=== PATIENT | female | born 1940 | race Caucasian/White ===

== ENCOUNTER 2021-08-30 21:43 | Inpatient (IN) | payer MEDICARE, OTHER ==
[2021-08-30] MEDS ORDERED: DIAZEPAM 5 MG/ML 2 ML INJ IVP STA (22:10)
--- NOTE | 2021-08-30 22:12 | ED ---
Abdominal Pain HPI - General Chief Complaint: Abdominal Pain Stated Complaint: Abdominal Pain Time Seen by Provider: 08/30/21 21:45 Source: patient, EMS, RN notes reviewed, old records reviewed Mode of arrival: EMS Limitations: no limitations - History of Present Illness Initial Comments: This is an 81-year-old female to the emergency room today. Patient Dese for evaluation of severe abdominal pain. Patient having significant intractable abdominal pain here in the ER unable to provide history of present illness secondary severity of pain. Positive nausea no significant current active vomiting. Patient is a poor strain secondary to current clinical state amount of pain MD Complaint: abdominal pain, flank pain (eft) Location: LLQ, suprapubic Radiation: L flank Migration to: L flank Severity: moderate Severity scale (1-10): 7 Quality: stabbing Consistency: constant Improves With: nothing Worsens With: nothing Associated Symptoms: denies other symptoms, nausea Treatments Prior to Arrival: prescription analgesics, other (ketamine) - Related Data Home Medications Medication Instructions Recorded Confirmed Acetaminophen Tab [Tylenol] 650 mg PO Q6H PRN MDD 3 GM 08/30/21 08/30/21 Cephalexin [Keflex] 500 mg PO BID@0800,199908/30/21 08/30/21 Docusate [Colace] 100 mg PO BID@0800,199908/30/21 08/30/21 Famotidine [Pepcid] 20 mg PO HS@199908/30/21 08/30/21 Lidocaine [Lidocaine 5% Rectal 1 applic RECTAL Q8H PRN 08/30/21 08/30/21 Cream] Nystatin 100,000Unit/gm Cream 1 applic TOPICAL DAILY@79908/30/21 08/30/21 [Mycostatin Cream] amLODIPine [Norvasc] 10 mg PO DAILY@79908/30/21 08/30/21 lisinopriL [Zestril] 5 mg PO DAILY@79908/30/21 08/30/21 polyethylene glycoL 3350 [Miralax] 17 gm PO DAILY@79908/30/21 08/30/21 traMADol HCL 50 mg PO Q6H PRN 08/30/21 08/30/21 Allergies Allergy/AdvReac Type Severity Reaction Status Date / Time No Known Allergies Allergy Verified 08/30/21 22:21 Review of Systems ROS Statement: Those systems with pertinent positive or pertinent negative responses have been documented in the HPI. ROS Other: All systems not noted in ROS Statement are negative. Past Medical History Past Medical History: Dementia, Diabetes Mellitus, Hypertension Additional Past Medical History / Comment(s): Alzheimers, Dysphagia, general muscle weakness, constipation, hemorrhoids, UTI History of Any Multi-Drug Resistant Organisms: None Reported Past Surgical History: Unable to Obtain Past Psychological History: No Psychological Hx Reported Smoking Status: Current every day smoker Past Alcohol Use History: None Reported Past Drug Use History: None Reported General Exam Limitations: altered mental status, physical limitation General appearance: alert, in no apparent distress, anxious, in distress Head exam: Present: atraumatic, normocephalic, normal inspection Eye exam: Present: normal appearance, PERRL, EOMI. Absent: scleral icterus, conjunctival injection, periorbital swelling ENT exam: Present: normal exam, mucous membranes moist Neck exam: Present: normal inspection. Absent: tenderness, meningismus, lymphadenopathy Respiratory exam: Present: normal lung sounds bilaterally. Absent: respiratory distress, wheezes, rales, rhonchi, stridor Cardiovascular Exam: Present: regular rate, normal rhythm, normal heart sounds. Absent: systolic murmur, diastolic murmur, rubs, gallop, clicks GI/Abdominal exam: Present: soft, normal bowel sounds. Absent: distended, tenderness, guarding, rebound, rigid Extremities exam: Present: normal inspection, full ROM, normal capillary refill. Absent: tenderness, pedal edema, joint swelling, calf tenderness Back exam: Present: normal inspection Neurological exam: Present: alert, oriented X3, CN II-XII intact Psychiatric exam: Present: normal affect, normal mood Skin exam: Present: warm, dry, intact, normal color. Absent: rash Course Vital Signs 08/30/21 08/31/21 21:49 00:26 Temperature 98.3 F Pulse Rate 71 66 Respiratory 16 20 Rate Blood Pressure 140/72 166/76 O2 Sat by Pulse 96 94 L Oximetry - Reevaluation(s) Reevaluation #1: 08/31/21 00:34 Medical record is reviewed Reevaluation #2: 08/31/21 00:34 Patient has intractable pain here in the ER 08/31/21 00:34 Patient's pain is difficult to control despite multiple pain medication given Reevaluation #3: 08/31/21 00:34 Patient family informed results questions answered - Consultations Consultation #1: spoke with [facility] will admit the patient Consultation #2: Spoke with Dr. Valdez who is aware of the patient Medical Decision Making - Medical Decision Making 81 female to the ER today for evaluation patient patient is significant left- sided flank pain with positive left kidney stone. Patient's pain is intractable unable control pain here in the ER she'll be admitted for pain control and urology to evaluate - Lab Data Result diagrams: 08/30/21 22:17 08/30/21 22:17 Lab Results 08/30/21 08/30/21 08/30/21 Range/Units 22:17 22:17 22:17 WBC 18.8 H (3.8-10.6) k/uL RBC 4.49 (3.80-5.40) m/uL Hgb 13.0 (11.4-16.0) gm/dL Hct 40.7 (34.0-46.0) % MCV 90.7 (80.0-100.0) fL MCH 28.9 (25.0-35.0) pg MCHC 31.9 (31.0-37.0) g/dL RDW 14.4 (11.5-15.5) % Plt Count 220 (150-450) k/uL MPV 8.4 Neutrophils % 87 % Lymphocytes % 6 % Monocytes % 5 % Eosinophils % 0 % Basophils % 0 % Neutrophils # 16.2 H (1.3-7.7) k/uL Lymphocytes # 1.1 (1.0-4.8) k/uL Monocytes # 0.9 (0-1.0) k/uL Eosinophils # 0.0 (0-0.7) k/uL Basophils # 0.0 (0-0.2) k/uL Sodium 135 L (137-145) mmol/L Potassium 4.3 (3.5-5.1) mmol/L Chloride 108 H (98-107) mmol/L Carbon Dioxide 19 L (22-30) mmol/L Anion Gap 8 mmol/L BUN 43 H (7-17) mg/dL Creatinine 0.99 (0.52-1.04) mg/dL Est GFR (CKD-EPI)AfAm 62 (>60 ml/min/1.73 sqM) Est GFR (CKD-EPI)NonAf 54 (>60 ml/min/1.73 sqM) Glucose 143 H (74-99) mg/dL Plasma Lactic Acid Justin (0.7-2.0) mmol/L Calcium 8.1 L (8.4-10.2) mg/dL Total Bilirubin 1.2 (0.2-1.3) mg/dL AST 30 (14-36) U/L ALT 18 (4-34) U/L Alkaline Phosphatase 72 (38-126) U/L Troponin I (0.000-0.034) ng/mL Total Protein 5.7 L (6.3-8.2) g/dL Albumin 3.0 L (3.5-5.0) g/dL Amylase 33 (30-110) U/L Lipase 15 L (23-300) U/L Urine Color Yellow Urine Appearance Cloudy H (Clear) Urine pH 7.0 (5.0-8.0) Ur Specific Holcomb 1.015 (1.001-1.035) Urine Protein 1+ H (Negative) Urine Glucose (UA) Negative (Negative) Urine Ketones Trace H (Negative) Urine Blood Large H (Negative) Urine Nitrite Negative (Negative) Urine Bilirubin Negative (Negative) Urine Urobilinogen <2.0 (<2.0) mg/dL Ur Leukocyte Esterase Moderate H (Negative) Urine RBC 7 H (0-5) /hpf Urine WBC 11 H (0-5) /hpf Urine WBC Clumps Rare H (None) /hpf Ur Squamous Epith Cells <1 (0-4) /hpf Amorphous Sediment Moderate H (None) /hpf Urine Bacteria Many H (None) /hpf Urine Mucus Rare H (None) /hpf 08/30/21 08/30/21 Range/Units 22:17 22:17 WBC (3.8-10.6) k/uL RBC (3.80-5.40) m/uL Hgb (11.4-16.0) gm/dL Hct (34.0-46.0) % MCV (80.0-100.0) fL MCH (25.0-35.0) pg MCHC (31.0-37.0) g/dL RDW (11.5-15.5) % Plt Count (150-450) k/uL MPV Neutrophils % % Lymphocytes % % Monocytes % % Eosinophils % % Basophils % % Neutrophils # (1.3-7.7) k/uL Lymphocytes # (1.0-4.8) k/uL Monocytes # (0-1.0) k/uL Eosinophils # (0-0.7) k/uL Basophils # (0-0.2) k/uL Sodium (137-145) mmol/L Potassium (3.5-5.1) mmol/L Chloride (98-107) mmol/L Carbon Dioxide (22-30) mmol/L Anion Gap mmol/L BUN (7-17) mg/dL Creatinine (0.52-1.04) mg/dL Est GFR (CKD-EPI)AfAm (>60 ml/min/1.73 sqM) Est GFR (CKD-EPI)NonAf (>60 ml/min/1.73 sqM) Glucose (74-99) mg/dL Plasma Lactic Acid Justin 1.1 (0.7-2.0) mmol/L Calcium (8.4-10.2) mg/dL Total Bilirubin (0.2-1.3) mg/dL AST (14-36) U/L ALT (4-34) U/L Alkaline Phosphatase (38-126) U/L Troponin I 0.082 H* (0.000-0.034) ng/mL Total Protein (6.3-8.2) g/dL Albumin (3.5-5.0) g/dL Amylase (30-110) U/L Lipase (23-300) U/L Urine Color Urine Appearance (Clear) Urine pH (5.0-8.0) Ur Specific Holcomb (1.001-1.035) Urine Protein (Negative) Urine Glucose (UA) (Negative) Urine Ketones (Negative) Urine Blood (Negative) Urine Nitrite (Negative) Urine Bilirubin (Negative) Urine Urobilinogen (<2.0) mg/dL Ur Leukocyte Esterase (Negative) Urine RBC (0-5) /hpf Urine WBC (0-5) /hpf Urine WBC Clumps (None) /hpf Ur Squamous Epith Cells (0-4) /hpf Amorphous Sediment (None) /hpf Urine Bacteria (None) /hpf Urine Mucus (None) /hpf - Radiology Data Radiology results: report reviewed (CT head and pelvis is positive for left obstructing kidney stone), image reviewed Disposition Clinical Impression: Left ureteral calculus, Intractable pain Disposition: ADMITTED IP TO THIS HOSP Condition: Good Is patient prescribed a controlled substance at d/c from ED?: No Referrals: Tejas Ocampo MD [Primary Care Provider] - 1-2 days
[2021-08-30 22:40] LABS: Calcium 8.1 mg/dL (8.4-10.2); Potassium 4.3 mmol/L (3.5-5.1); Total Bilirubin 1.2 mg/dL (0.2-1.3); Total Protein 5.7 g/dL (6.3-8.2)
[2021-08-30 22:57] LABS: Basophils % (A) 0 %; Eosinophils % (A) 0 %; HCT 40.7 % (34.0-46.0); Lymphocytes # (A) 1.1 k/uL (1.0-4.8); Lymphocytes % (A) 6 %; MCH 28.9 pg (25.0-35.0); MCHC 31.9 g/dL (31.0-37.0); MCV 90.7 fL (80.0-100.0); Mean Platelet Volume 8.4; Monocytes # (A) 0.9 k/uL (0-1.0); Monocytes % (A) 5 %; Neutrophils # (A) 16.2 k/uL (1.3-7.7); Neutrophils % (A) 87 %; Platelet Count 220 k/uL (150-450); RBC 4.49 m/uL (3.80-5.40); RDW 14.4 % (11.5-15.5); WBC 18.8 k/uL (3.8-10.6)
[2021-08-30 23:06] LABS: Amorphous Sediment,Urine Moderate /hpf; Appearance,Urine Cloudy (Clear); Bacteria,Urine Many /hpf; Bilirubin,Urine Negative (Negative); Blood,Urine Large (Negative); Color,Urine Yellow; Glucose,Urine (UA) Negative (Negative); Ketones,Urine Trace (Negative); Leukocyte Esterase,Urine Moderate (Negative); Mucus,Urine Rare /hpf; Nitrite,Urine Negative (Negative); Protein,Urine 1+ (Negative); RBC,Urine 7 /hpf (0-5); Specific Gravity,Urine 1.015 (1.001-1.035); Squamous Epithelial Cell,Urine <1 /hpf (0-4); Urobilinogen,Urine <2.0 mg/dL (<2.0); WBC,Urine 11 /hpf (0-5)
--- NOTE | 2021-08-30 23:58 | CT ---
EXAMINATION TYPE: CT abdomen pelvis w con DATE OF EXAM: 08/30/2021 COMPARISON: None HISTORY: abd pain. ams CT DLP: 1356.8 mGycm Automated exposure control for dose reduction was used. CONTRAST: Performed with IV Contrast, patient injected with 80 mL of Isovue 300. Images obtained from the diaphragm to the floor the pelvis with IV contrast. There is some interstiti al infiltrate and atelectasis at both lung bases. Heart is enlarged. There is no pericardial effusion . Liver is intact. There are numerous calcified splenic granulomata. There is no evidence of pancreatic mass. There is some pancreatic atrophy. Stomach is intact. Gallbladder appears absent. The intrahepatic bile ducts are not dilated. There is no adrenal mass. Kidneys have normal size. There is left-sided hydronephrosis with 1 cm calculus lower pole left kidne y. There is also 7 mm calculus at the left ureteropelvic junction. Delayed images show a delayed left sided pyelogram. There is cortical 3 cm area of hypodensity lower pole left kidney that could be aty pical cyst or cortical infarct. Right kidney shows satisfactory contrast opacification and excretion. There is no retroperitoneal adenopathy. Ureters are not dilated. Abdominal aorta is atheromatous. Th ere is no dissection. There is bilateral hip prosthesis. Detail in the pelvis limited by metal artifa ct. There is no evidence of a pelvic mass. Bladder appears to distends smoothly. There is no free flu id in the pelvis. There is no evidence of pelvic mass. There is left lower quadrant anterior abdominal wall ventral hernia that contains omental fat and chalo sures 8 x 4 cm. There is 3.2 cm aneurysm of the lower abdominal aorta. There is some mild fat stranding and fluid jayne und the left kidney. The lumbar vertebrae show normal alignment. There is multilevel spondylotic changes with disc space n arrowing and spur formation. There is no compression fracture. Bony pelvis is intact. Appendix is posterior and appears normal. IMPRESSION: Obstructing calculus left ureteral pelvic junction with hydronephrosis. A large calculus lower pole l eft kidney. Moderate atherosclerotic vascular disease. Cortical hypodensity lower pole left kidney could be an ol d infarct. Mild abdominal aortic aneurysm. Patchy infiltrates and atelectasis at both lung bases. Mild cardiomegaly.
[2021-08-31] MEDS ORDERED: KETOROLAC 15 MG/ML 1 ML VIAL IVP STA (00:30)
[2021-08-31] MEDS ORDERED: ONDANSETRON 4 MG/2 ML VIAL IVP STA (00:30)
[2021-08-31] MEDS ORDERED: HYDROmorphone 1 MG/ML 1 ML SYRINGE IVP STA (00:30)
[2021-08-31] MEDS ORDERED: NALOXONE 0.4 MG/ML 1 ML VIAL IV PRN (00:31)
[2021-08-31] MEDS: SODIUM CHLORIDE 0.9% 1,000 ML IV SCH ×3 (00:48→18:07)
[2021-08-31] MEDS: HYDROmorphone 1 MG/ML 1 ML SYRINGE IVP PRN ×4 (02:57→19:28)
--- NOTE | 2021-08-31 03:23 | P.HPIM ---
History of Present Illness H&P Date: 08/31/21 Chief Complaint: abd pain 81 year old female with dementia , DM , hypertension patient unable to provide any meaningful history , she makes eye contact, and moaning only . family not available at this time from ED records, patient presents with severe abd pain , refractory to pain meds, with report of nausea and vomiting, no report of hematuria or diarrhea , no report of fever. imaging in the ED showed left kidney stones (obstructing left uretro pelvic junction calculus with hydronephrosis , and large lower pole Left kidney stone , mild abd aneurysm ) blood work showd normal lactic acid , Leukocytosis of 18 Review of Systems ROS unobtainable: due to mental status Past Medical History Past Medical History: Dementia, Diabetes Mellitus, Hypertension Additional Past Medical History / Comment(s): Alzheimers, Dysphagia, general muscle weakness, constipation, hemorrhoids, UTI History of Any Multi-Drug Resistant Organisms: None Reported Past Surgical History: Unable to Obtain Past Psychological History: No Psychological Hx Reported Smoking Status: Current every day smoker Past Alcohol Use History: None Reported Past Drug Use History: None Reported Medications and Allergies Home Medications Medication Instructions Recorded Confirmed Type Acetaminophen Tab [Tylenol] 650 mg PO Q6H PRN MDD 3 GM 08/30/21 08/30/21 History Cephalexin [Keflex] 500 mg PO BID@0800,199908/30/21 08/30/21 History Docusate [Colace] 100 mg PO BID@0800,199908/30/21 08/30/21 History Famotidine [Pepcid] 20 mg PO HS@199908/30/21 08/30/21 History Lidocaine [Lidocaine 5% Rectal 1 applic RECTAL Q8H PRN 08/30/21 08/30/21 History Cream] Nystatin 100,000Unit/gm Cream 1 applic TOPICAL DAILY@79908/30/21 08/30/21 History [Mycostatin Cream] amLODIPine [Norvasc] 10 mg PO DAILY@79908/30/21 08/30/21 History lisinopriL [Zestril] 5 mg PO DAILY@0800 08/30/21 08/30/21 History polyethylene glycoL 3350 [Miralax] 17 gm PO DAILY@79908/30/21 08/30/21 History traMADol HCL 50 mg PO Q6H PRN 08/30/21 08/30/21 History Allergies Allergy/AdvReac Type Severity Reaction Status Date / Time No Known Allergies Allergy Verified 08/30/21 22:21 Physical Exam Vitals: Vital Signs Temp Pulse Resp BP Pulse Ox 08/31/21 00:26 66 20 166/76 94 L 08/30/21 21:49 98.3 F 71 16 140/72 96 Intake and Output 08/30/21 08/30/21 08/31/21 14:59 22:59 06:59 Other: Weight 68.039 kg limited exam , patient does not cooperate with commands. Constitutional: moaning in pain , makes eye contact, does not follow c ommands moving spontaneously Eyes: Anicteric sclerae, moist conjunctiva, Pupils equal round reactive to light ENMT: NC/AT Oropharynx clear, no erythema, or exudates Neck: Supple, no masses, or JVD No carotid bruits No thyromegaly Lungs: Clear to auscultation Clear to percussion Normal respiratory effort, no accessory muscle use Cardiovascular: Heart regular in rate and rhythm, systolic murmurs, no gallops, or rubs No peripheral edema Abdominal: Soft deep palpation of the abd does not seem to increase patient pain , no guarding, rebound or rigidity Abdomen moving with respiration Normoactive bowel sounds No hepatomegaly, No splenomegaly No palpable mass No abdominal wall hernia noted Skin: Normal temperature, tone, texture, turgor Extremities: No digital cyanosis No clubbing Pedal pulses intact and symmetrical Radial pulses intact and symmetrical No calf tenderness Psychiatric: awake , moaning does not answer questions, does not follow commands, Neuro could not assess neuro exam , patient moving her extremities spontaneously Lymphatics: no palpable cervical or supraclavicular , lymph nodes Results CBC & Chem 7: 08/30/21 22:17 08/30/21 22:17 Labs: Abnormal Lab Results - Last 24 Hours (Table) 08/30/21 08/30/21 08/30/21 Range/Units 22:17 22:17 22:17 WBC 18.8 H (3.8-10.6) k/uL Neutrophils # 16.2 H (1.3-7.7) k/uL Sodium 135 L (137-145) mmol/L Chloride 108 H (98-107) mmol/L Carbon Dioxide 19 L (22-30) mmol/L BUN 43 H (7-17) mg/dL Glucose 143 H (74-99) mg/dL Calcium 8.1 L (8.4-10.2) mg/dL Troponin I (0.000-0.034) ng/mL Total Protein 5.7 L (6.3-8.2) g/dL Albumin 3.0 L (3.5-5.0) g/dL Lipase 15 L (23-300) U/L Urine Appearance Cloudy H (Clear) Urine Protein 1+ H (Negative) Urine Ketones Trace H (Negative) Urine Blood Large H (Negative) Ur Leukocyte Esterase Moderate H (Negative) Urine RBC 7 H (0-5) /hpf Urine WBC 11 H (0-5) /hpf Urine WBC Clumps Rare H (None) /hpf Amorphous Sediment Moderate H (None) /hpf Urine Bacteria Many H (None) /hpf Urine Mucus Rare H (None) /hpf 08/30/21 Range/Units 22:17 WBC (3.8-10.6) k/uL Neutrophils # (1.3-7.7) k/uL Sodium (137-145) mmol/L Chloride (98-107) mmol/L Carbon Dioxide (22-30) mmol/L BUN (7-17) mg/dL Glucose (74-99) mg/dL Calcium (8.4-10.2) mg/dL Troponin I 0.082 H* (0.000-0.034) ng/mL Total Protein (6.3-8.2) g/dL Albumin (3.5-5.0) g/dL Lipase (23-300) U/L Urine Appearance (Clear) Urine Protein (Negative) Urine Ketones (Negative) Urine Blood (Negative) Ur Leukocyte Esterase (Negative) Urine RBC (0-5) /hpf Urine WBC (0-5) /hpf Urine WBC Clumps (None) /hpf Amorphous Sediment (None) /hpf Urine Bacteria (None) /hpf Urine Mucus (None) /hpf Microbiology - Last 24 Hours (Table) 08/30/21 22:17 Urine Culture - Preliminary Urine,Catheterized Assessment and Plan Assessment: UTI kidney stones , obstructive uropathy with left hydronephrosis plan urology consult IVF hydration pain control follow up cultures rocephine 1 gm Daily fall precautions supportive care pain control with opioids elevated trops trend troponins monitor vital signs no report of chest pain mild abd aortic aneurysm , consider OP follow up chronic conditions hypertension , resume home BP meds DM , insulin sliding scale dementia full code DVT PPx heparin sc tid anticipated length of stay > 2 midnights
[2021-08-31] MEDS ORDERED: HYDROmorphone 0.5 MG/0.5 ML SYRINGE IVP STA (04:48)
[2021-08-31] MEDS: INSULIN ASPART (NovoLOG) 100 UNIT/ML VIAL SQ SCH ×4 (09:48→22:05)
[2021-08-31] MEDS: PANTOPRAZOLE 40 MG/10 ML VIAL IV SCH (09:53)
[2021-08-31] MEDS: HEPARIN SODIUM,PORCINE/PF 5,000 UNIT/0.5 ML SYRINGE SQ SCH ×2 (09:53→18:06)
[2021-08-31] MEDS: amLODIPine 10 MG TAB PO SCH (09:53)
--- NOTE | 2021-08-31 11:20 | P.PN ---
<Oh Mckeon - Last Filed: 08/31/21 15:56> Subjective Progress Note Date: 08/31/21 Hospital course: Patient is a very pleasant 81-year-old female with a past medical history of Alzheimer's dementia, diabetes and hypertension. She presented to the emergency department from [facility] with a chief complaint of abdominal pain. Patient was seen and fully evaluated in the emergency department where she was found to have an obstructing calculus of the left ureteral pelvic junction with hydronephrosis, leukocytosis with WBC count of 18.8, UTI, and elevated troponins of 0.082, 0.076, and 0.067. She underwent CT abdomen and pelvis with contrast revealed an obstructing calculus of left ureteral pelvic junction with hydronephrosis, a large calculus lower pole of left kidney, moderate a therosclerotic vascular disease with cortical hypodensity in left lower pole of left kidney possibly representing an old infarct, a mild 3.2 cm abdominal aortic aneurysm, and a left lower quadrant abdominal wall ventral hernia containing omental fat measuring 8 x 4 cm. Patient was admitted under our services with consultation to urology. Physical exam: Vital signs reviewed and stable. General: Nontoxic and appears stated age. Derm: Skin warm and dry, normal coloration for ethnicity. Head: Atraumatic, normocephalic and symmetric. Eyes: No lid lag, and anicteric sclera Mouth: No lip lesions, mucus membranes moist Cardiovascular: regular rate and rhythm with normal S1S2, systolic murmur, positive posterior tibial pulses bilaterally, and cap refill < 2 seconds. Lungs: Respirations even, regular, and unlabored on room air. Lungs CTA bilaterally, no rhonchi, no rales, no wheezing, and no accessory muscle usage. Abdominal: soft, Tenderness left lower quadrant/flank. No guarding, no appreciable organomegaly Ext: ROM intact. No gross muscle atrophy, no edema, no contractures Neuro: Awake, does not follow commands or answer questions, did point to left lower quadrant of abdomen when asked about pain. Psych: Awake and alert, moaning pointing to pain in left lower quadrant. Assessment and Plan of Care: Obstructing calculus of the left ureteral pelvic junction with hydronephrosis Leukocytosis with WBC count of 18.8 UTI -Urology following plans to take patient for cystoscopy with left ureteral stent insertion -Continue IV antibiotics with Rocephin pending urine culture results -Gentle hydration with 0.9% normal saline -Bladder management with close monitoring of I's and O's -Follow up on urine cultures -Safe and supportive care with pain control. Elevated troponins, flat -Monitor vital signs closely and Continue telemetry monitoring. -Obtain an EKG -Patient asymptomatic of cardiac complaints. Abdominal aortic aneurysm 3.2 cm, incidental finding on imaging -Recommend following up outpatient with vascular surgery for long-term monitoring/management. Left lower quadrant abdominal wall ventral hernia -Recommend following up outpatient with general surgery for long-term monitoring/management. Dementia -Continue to provide safe and supportive care with assistance as needed. -Fall precautions Hypertension Monitor vital signs and continue daily medication regimen with amlodipine and lisinopril. Diabetes mellitus -Glycemic protocol with NovoLog sliding scale. CODE STATUS: Full code DVT prophylaxis: Heparin Discussed with: Patient and RN Anticipated discharge date: Clinical course to determine Anticipated discharge place: Back to [facility] A total of 40 minutes was spent on the care of this complex patient more than 50% of the time was spent in counseling and care coordination. Objective - Vital Signs Vital signs: Vital Signs Temp 98.0 F 08/31/21 09:50 Pulse 65 08/31/21 09:50 Resp 18 08/31/21 10:50 BP 130/79 08/31/21 09:50 Pulse Ox 94 L 08/31/21 09:50 Intake & Output 08/30/21 08/31/21 08/31/21 18:59 06:59 18:59 Output Total 400 Balance -400 Weight 68.039 kg Output: Urine 400 Straight 400 - Labs CBC & Chem 7: 08/30/21 22:17 08/30/21 22:17 Labs: Abnormal Lab Results - Last 24 Hours (Table) 08/30/21 08/30/21 08/30/21 Range/Units 22:17 22:17 22:17 WBC 18.8 H (3.8-10.6) k/uL Neutrophils # 16.2 H (1.3-7.7) k/uL Sodium 135 L (137-145) mmol/L Chloride 108 H (98-107) mmol/L Carbon Dioxide 19 L (22-30) mmol/L BUN 43 H (7-17) mg/dL Glucose 143 H (74-99) mg/dL Calcium 8.1 L (8.4-10.2) mg/dL Troponin I (0.000-0.034) ng/mL Total Protein 5.7 L (6.3-8.2) g/dL Albumin 3.0 L (3.5-5.0) g/dL Lipase 15 L (23-300) U/L Urine Appearance Cloudy H (Clear) Urine Protein 1+ H (Negative) Urine Ketones Trace H (Negative) Urine Blood Large H (Negative) Ur Leukocyte Esterase Moderate H (Negative) Urine RBC 7 H (0-5) /hpf Urine WBC 11 H (0-5) /hpf Urine WBC Clumps Rare H (None) /hpf Amorphous Sediment Moderate H (None) /hpf Urine Bacteria Many H (None) /hpf Urine Mucus Rare H (None) /hpf 08/30/21 08/31/21 08/31/21 Range/Units 22:17 02:58 06:45 WBC (3.8-10.6) k/uL Neutrophils # (1.3-7.7) k/uL Sodium (137-145) mmol/L Chloride (98-107) mmol/L Carbon Dioxide (22-30) mmol/L BUN (7-17) mg/dL Glucose (74-99) mg/dL Calcium (8.4-10.2) mg/dL Troponin I 0.082 H* 0.076 H* 0.067 H* (0.000-0.034) ng/mL Total Protein (6.3-8.2) g/dL Albumin (3.5-5.0) g/dL Lipase (23-300) U/L Urine Appearance (Clear) Urine Protein (Negative) Urine Ketones (Negative) Urine Blood (Negative) Ur Leukocyte Esterase (Negative) Urine RBC (0-5) /hpf Urine WBC (0-5) /hpf Urine WBC Clumps (None) /hpf Amorphous Sediment (None) /hpf Urine Bacteria (None) /hpf Urine Mucus (None) /hpf Microbiology - Last 24 Hours (Table) 08/30/21 22:17 Urine Culture - Preliminary Urine,Catheterized <Abdirashid Ron - Last Filed: 09/01/21 08:00> Subjective I reviewed the documentation as provided by the JODY above, who is the original author of this note. I agree with the documented assessment and plan, with the following changes: none Objective - Vital Signs Vital signs: Vital Signs Temp 98.5 F 09/01/21 07:32 Pulse 85 09/01/21 07:32 Resp 18 09/01/21 07:32 BP 177/75 09/01/21 07:32 Pulse Ox 91 L 09/01/21 07:32 Intake & Output 08/31/21 09/01/21 09/01/21 18:59 06:59 18:59 Intake Total 400 540 Output Total 0 1050 Balance 400 -510 Weight 68.039 kg Intake: IV 400 Oral 540 Output: Urine 1050 Straight 900 Estimated Blood Loss 0 Other: Voiding Method External Catheter - Labs CBC & Chem 7: 08/30/21 22:17 08/30/21 22:17 Labs: Abnormal Lab Results - Last 24 Hours (Table) 08/31/21 08/31/21 09/01/21 Range/Units 17:28 20:24 06:16 POC Glucose (mg/dL) 101 H 122 H 160 H (75-99) mg/dL
--- NOTE | 2021-08-31 12:33 | P.GSCN ---
History of Present Illness Consult date: 08/31/21 Reason for Consult: Left hydronephrosis secondary to left proximal ureteral calculus Requesting physician: Aury Crooks History of present illness: The patient is an 81-year-old white female with dementia. She presents with abdominal pain, associated with nausea and vomiting. She is unable to provide history. Review of Systems ROS unobtainable: due to mental status Past Medical History Past Medical History: Dementia, Diabetes Mellitus, Hypertension Additional Past Medical History / Comment(s): Alzheimers, Dysphagia, general muscle weakness, constipation, hemorrhoids, UTI History of Any Multi-Drug Resistant Organisms: None Reported Past Surgical History: Unable to Obtain Past Psychological History: No Psychological Hx Reported Smoking Status: Current every day smoker Past Alcohol Use History: None Reported Past Drug Use History: None Reported Medications and Allergies Home Medications Medication Instructions Recorded Confirmed Type Acetaminophen Tab [Tylenol] 650 mg PO Q6H PRN MDD 3 GM 08/30/21 08/30/21 History Cephalexin [Keflex] 500 mg PO BID@0800,199908/30/21 08/30/21 History Docusate [Colace] 100 mg PO BID@0800,199908/30/21 08/30/21 History Famotidine [Pepcid] 20 mg PO HS@199908/30/21 08/30/21 History Lidocaine [Lidocaine 5% Rectal 1 applic RECTAL Q8H PRN 08/30/21 08/30/21 History Cream] Nystatin 100,000Unit/gm Cream 1 applic TOPICAL DAILY@79908/30/21 08/30/21 Hi story [Mycostatin Cream] amLODIPine [Norvasc] 10 mg PO DAILY@0808/30/21 08/30/21 History lisinopriL [Zestril] 5 mg PO DAILY@0800 08/30/21 08/30/21 History polyethylene glycoL 3350 [Miralax] 17 gm PO DAILY@79908/30/21 08/30/21 History traMADol HCL 50 mg PO Q6H PRN 08/30/21 08/30/21 History Allergies Allergy/AdvReac Type Severity Reaction Status Date / Time No Known Allergies Allergy Verified 08/30/21 22:21 Surgical - Exam Vital Signs Temp Pulse Resp BP Pulse Ox 98.3 F 71 16 140/72 96 08/30/21 21:49 08/30/21 21:49 08/30/21 21:49 08/30/21 21:49 08/30/21 21:49 - General well developed, well nourished, no distress - Respiratory normal respiratory effort - Abdomen Abdomen: soft, non tender, no guarding, no rigid, no rebound - Psychiatric oriented to time, oriented to person, oriented to place, speech is normal, memory intact Results - Labs 08/30/21 22:17 08/30/21 22:17 Abnormal Lab Results - Last 24 Hours (Table) 08/30/21 08/30/21 08/30/21 Range/Units 22:17 22:17 22:17 WBC 18.8 H (3.8-10.6) k/uL Neutrophils # 16.2 H (1.3-7.7) k/uL Sodium 135 L (137-145) mmol/L Chloride 108 H (98-107) mmol/L Carbon Dioxide 19 L (22-30) mmol/L BUN 43 H (7-17) mg/dL Glucose 143 H (74-99) mg/dL Calcium 8.1 L (8.4-10.2) mg/dL Troponin I (0.000-0.034) ng/mL Total Protein 5.7 L (6.3-8.2) g/dL Albumin 3.0 L (3.5-5.0) g/dL Lipase 15 L (23-300) U/L Urine Appearance Cloudy H (Clear) Urine Protein 1+ H (Negative) Urine Ketones Trace H (Negative) Urine Blood Large H (Negative) Ur Leukocyte Esterase Moderate H (Negative) Urine RBC 7 H (0-5) /hpf Urine WBC 11 H (0-5) /hpf Urine WBC Clumps Rare H (None) /hpf Amorphous Sediment Moderate H (None) /hpf Urine Bacteria Many H (None) /hpf Urine Mucus Rare H (None) /hpf 08/30/21 08/31/21 Range/Units 22:17 02:58 WBC (3.8-10.6) k/uL Neutrophils # (1.3-7.7) k/uL Sodium (137-145) mmol/L Chloride (98-107) mmol/L Carbon Dioxide (22-30) mmol/L BUN (7-17) mg/dL Glucose (74-99) mg/dL Calcium (8.4-10.2) mg/dL Troponin I 0.082 H* 0.076 H* (0.000-0.034) ng/mL Total Protein (6.3-8.2) g/dL Albumin (3.5-5.0) g/dL Lipase (23-300) U/L Urine Appearance (Clear) Urine Protein (Negative) Urine Ketones (Negative) Urine Blood (Negative) Ur Leukocyte Esterase (Negative) Urine RBC (0-5) /hpf Urine WBC (0-5) /hpf Urine WBC Clumps (None) /hpf Amorphous Sediment (None) /hpf Urine Bacteria (None) /hpf Urine Mucus (None) /hpf Microbiology - Last 24 Hours (Table) 08/30/21 22:17 Urine Culture - Preliminary Urine,Catheterized Diabetes panel 08/30/21 Range/Units 22:17 Sodium 135 L (137-145) mmol/L Potassium 4.3 (3.5-5.1) mmol/L Chloride 108 H (98-107) mmol/L Carbon Dioxide 19 L (22-30) mmol/L BUN 43 H (7-17) mg/dL Creatinine 0.99 (0.52-1.04) mg/dL Glucose 143 H (74-99) mg/dL Calcium 8.1 L (8.4-10.2) mg/dL AST 30 (14-36) U/L ALT 18 (4-34) U/L Alkaline Phosphatase 72 (38-126) U/L Total Protein 5.7 L (6.3-8.2) g/dL Albumin 3.0 L (3.5-5.0) g/dL Calcium panel 08/30/21 Range/Units 22:17 Calcium 8.1 L (8.4-10.2) mg/dL Albumin 3.0 L (3.5-5.0) g/dL Pituitary panel 08/30/21 Range/Units 22:17 Sodium 135 L (137-145) mmol/L Potassium 4.3 (3.5-5.1) mmol/L Chloride 108 H (98-107) mmol/L Carbon Dioxide 19 L (22-30) mmol/L BUN 43 H (7-17) mg/dL Creatinine 0.99 (0.52-1.04) mg/dL Glucose 143 H (74-99) mg/dL Calcium 8.1 L (8.4-10.2) mg/dL Adrenal panel 08/30/21 Range/Units 22:17 Sodium 135 L (137-145) mmol/L Potassium 4.3 (3.5-5.1) mmol/L Chloride 108 H (98-107) mmol/L Carbon Dioxide 19 L (22-30) mmol/L BUN 43 H (7-17) mg/dL Creatinine 0.99 (0.52-1.04) mg/dL Glucose 143 H (74-99) mg/dL Calcium 8.1 L (8.4-10.2) mg/dL Total Bilirubin 1.2 (0.2-1.3) mg/dL AST 30 (14-36) U/L ALT 18 (4-34) U/L Alkaline Phosphatase 72 (38-126) U/L Total Protein 5.7 L (6.3-8.2) g/dL Albumin 3.0 L (3.5-5.0) g/dL - Imaging CT scan - abdomen: report reviewed, image reviewed Assessment and Plan (1) Left ureteral calculus Current Visit: Yes Status: Acute Code(s): N20.1 - CALCULUS OF URETER SNOMED Code(s): 61124194 (2) Calculus of kidney Current Visit: Yes Status: Acute Code(s): N20.0 - CALCULUS OF KIDNEY SNOMED Code(s): 44263755 (3) Hydronephrosis with renal and ureteral calculous obstruction Current Visit: Yes Status: Acute Code(s): N13.2 - HYDRONEPHROSIS WITH RENAL AND URETERAL CALCULOUS OBSTRUCTION SNOMED Code(s): 312876466 Plan: The patient's abdominal pain is very likely due to left hydronephrosis resulting from a 7 x 9 mm left proximal ureteral calculus. CT scan also shows a 13 mm left lower pole renal calculus. Given the patient's dementia, I contacted her daughter and discussed the situation with her. I have recommended the patient undergo cystoscopy with left ureteral stent insertion. This should improve her symptomatology and allow her to be transferred back to [facility]. Arrangements will then be made for her to undergo elective ureteroscopy with laser lithotripsy. Given the stone burden, she may require multiple procedures. However, I favor this over a percutaneous nephrolithotomy given its less invasive nature. This is all been reviewed in detail with the patient's daughter, who was made aware of potential risks which include anesthesia, bleeding, infection, and ureteral injury. Time with Patient: Greater than 30
[2021-08-31] MEDS ORDERED: ONDANSETRON 4 MG/2 ML VIAL IVP ONE (15:40)
[2021-08-31] MEDS ORDERED: DEXAMETHASONE SOD PHOSPHATE 4 MG/ML 1 ML VIAL IV ONE (15:40)
[2021-08-31] MEDS ORDERED: IV FLUID CONTINUATION 100 ML IV ONE (15:54)
[2021-08-31] MEDS ORDERED: fentaNYL (PF) 50 MCG/ML 2 ML AMP IVP ONE ×4 (16:07→17:46)
[2021-08-31] MEDS ORDERED: ONDANSETRON 4 MG/2 ML VIAL ONE (16:23)
[2021-08-31] MEDS ORDERED: PROPOFOL 10 MG/ML 20 ML VIAL IV ONE (16:23)
[2021-08-31] MEDS ORDERED: SUCCINYLCHOLINE CHLORIDE 100 MG/5 ML SYR IV ONE (16:23)
[2021-08-31] MEDS ORDERED: LIDOCAINE 1% INJ 10MG/ML (20 ML MDV) ONE (16:23)
[2021-08-31] MEDS ORDERED: DEXAMETHASONE SOD PHOSPHATE 4 MG/ML 1 ML VIAL ONE (16:23)
[2021-08-31] MEDS ORDERED: GLYCOPYRROLATE 0.2 MG/ML 2 ML VIAL ONE (16:23)
[2021-08-31] MEDS: LACTATED RINGERS 1,000 ML IV SCH (16:29)
--- NOTE | 2021-08-31 17:07 | P.OP ---
Date of Procedure: 08/31/21 Preoperative Diagnosis: Left hydronephrosis secondary to left proximal ureteral calculus Postoperative Diagnosis: Same Procedure(s) Performed: Cystoscopy, left ureteral stent insertion Anesthesia: HENNAA Surgeon: Justin Valdez Estimated Blood Loss (ml): 0 IV fluids (ml): 300 Pathology: none sent Condition: stable Disposition: PACU Indications for Procedure: The patient is an 81-year-old white female admitted with abdominal pain. CT scan shows left hydronephrosis resulting from a 7 x 9 mm left proximal ureteral calculus, along with a 13 mm left lower pole renal calculus. She now comes for left ureteral stent insertion. She will subsequently undergo elective ureteroscopy with laser lithotripsy. Operative Findings: Successful placement of left ureteral stent Description of Procedure: The patient was taken to the operating room and placed in the dorsolithotomy position, with legs supported in Nasir stirrups. The external genitalia was prepped and draped sterilely. The 30 lens was used to introduce the 22-Afghan Stortz cystoscopic sheath through the urethra and into the bladder under direct vision. The bladder was examined in its entirety. Some debris and blood was irrigated from the bladder. Both ureteral orifices were of normal anatomic location and configuration. No tumors or foreign bodies were seen. An angle- tip 0.035 inch Glidewire was passed through the cystoscope. The left ureteral orifice was cannulated, and the Glidewire was slowly advanced up to the renal pelvis. A 24 cm, 6-Afghan double-J ureteral stent was placed over the wire. Proper stent positioning was verified fluoroscopically and endoscopically. A "hydronephrotic vitale" was noted when the wire was passed, but none was noted through the stent. The bladder was emptied and the cystoscope removed. The patient tolerated the procedure well was taken to the recovery room in stable condition.
[2021-08-31 17:30] LABS: Glucose,Whole Blood 101 mg/dL (75-99)
[2021-08-31] MEDS: DOCUSATE 100 MG CAP PO SCH ×2 (18:05→19:39)
[2021-08-31] MEDS: lisinopriL 5 MG TAB PO SCH (18:21)
[2021-08-31] MEDS: ONDANSETRON 4 MG/2 ML VIAL IVP PRN (18:30)
[2021-08-31] MEDS: FAMOTIDINE 20 MG TAB PO SCH (19:39)
[2021-08-31 20:26] LABS: Glucose,Whole Blood 122 mg/dL (75-99)
--- NOTE | 2021-08-31 20:59 | FL ---
EXAMINATION TYPE: FL guidance operating room DATE OF EXAM: 08/31/2021 CLINICAL HISTORY: Left-sided hydronephrosis. TECHNIQUE: Fluoroscopy. COMPARISON: CT abdomen and pelvis August 30, 2021 FINDINGS: Fluoroscopic guidance was provided during retrograde cystogram with left ureter stent inse rtion procedure performed by Dr. Valdez. A total of 30 seconds of fluoroscopic time was utilized dur ing the procedure and 3 spot images was acquired. Images acquired show advancement of guidewire and s ubsequent double-J ureter stent into the left collecting system. IMPRESSION: As Above.
[2021-09-01] MEDS: SODIUM CHLORIDE 0.9% 1,000 ML IV SCH ×2 (01:11→11:33)
[2021-09-01] MEDS: HEPARIN SODIUM,PORCINE/PF 5,000 UNIT/0.5 ML SYRINGE SQ SCH ×3 (01:12→17:13)
[2021-09-01] MEDS: HYDROmorphone 1 MG/ML 1 ML SYRINGE IVP PRN ×4 (03:16→17:13)
[2021-09-01] MEDS: ONDANSETRON 4 MG/2 ML VIAL IVP PRN (06:11)
[2021-09-01 06:18] LABS: Glucose,Whole Blood 160 mg/dL (75-99)
[2021-09-01] MEDS: INSULIN ASPART (NovoLOG) 100 UNIT/ML VIAL SQ SCH ×4 (06:27→20:42)
[2021-09-01] MEDS ORDERED: fentaNYL (PF) 50 MCG/ML 2 ML AMP IV PRN (07:00)
[2021-09-01] MEDS: DOCUSATE 100 MG CAP PO SCH ×2 (07:39→20:06)
[2021-09-01] MEDS: lisinopriL 5 MG TAB PO SCH (07:39)
[2021-09-01] MEDS: PANTOPRAZOLE 40 MG/10 ML VIAL IV SCH (07:39)
[2021-09-01] MEDS: amLODIPine 10 MG TAB PO SCH (07:39)
[2021-09-01 08:23] LABS: Basophils % (A) 0 %; Eosinophils % (A) 0 %; HCT 39.5 % (34.0-46.0); HGB 12.3 gm/dL (11.4-16.0); Hypochromasia Slight; Lymphocytes # (A) 1.1 k/uL (1.0-4.8); Lymphocytes % (A) 9 %; MCH 28.6 pg (25.0-35.0); MCV 92.3 fL (80.0-100.0); Mean Platelet Volume 8.4; Monocytes # (A) 0.3 k/uL (0-1.0); Monocytes % (A) 3 %; Neutrophils # (A) 11.3 k/uL (1.3-7.7); Neutrophils % (A) 88 %; Platelet Count 267 k/uL (150-450); RBC 4.28 m/uL (3.80-5.40); RDW 14.4 % (11.5-15.5); WBC 12.9 k/uL (3.8-10.6)
[2021-09-01 08:49] LABS: Albumin 2.9 g/dL (3.5-5.0); Calcium 8.4 mg/dL (8.4-10.2); Magnesium 2.2 mg/dL (1.6-2.3); Potassium 4.2 mmol/L (3.5-5.1); Total Bilirubin 0.6 mg/dL (0.2-1.3); Total Protein 5.6 g/dL (6.3-8.2)
--- NOTE | 2021-09-01 09:08 | P.PN ---
Progress Note - Text Progress Note Date: 09/01/21 The patient appears restless. She requested that I return on the television as a distraction. It is difficult to determine whether or not she is in pain, given her dementia. She underwent successful placement of a left ureteral stent yesterday. Her urine culture is pending. If the culture is negative, she may be discharged home. If the culture is positive, she should be discharged home on appropriate antibiotics. Arrangements will be made for her to undergo outpatient ureteroscopy with laser lithotripsy.
--- NOTE | 2021-09-01 10:56 | P.PN ---
<Oh Mckeon - Last Filed: 09/01/21 13:18> Subjective Progress Note Date: 09/01/21 Hospital course: Patient is a very pleasant 81-year-old female with a past medical history of Alzheimer's dementia, diabetes and hypertension. She presented to the emergency department from [facility] with a chief complaint of abdominal pain. Patient was seen and fully evaluated in the emergency department where she was found to have an obstructing calculus of the left ureteral pelvic junction with hydronephrosis, leukocytosis with WBC count of 18.8, UTI, and elevated troponins of 0.082, 0.076, and 0.067. She underwent CT abdomen and pelvis with contrast revealed an obstructing calculus of left ureteral pelvic junction with hydronephrosis, a large calculus lower pole of left kidney, moderate a therosclerotic vascular disease with cortical hypodensity in left lower pole of left kidney possibly representing an old infarct, a mild 3.2 cm abdominal aortic aneurysm, and a left lower quadrant abdominal wall ventral hernia containing omental fat measuring 8 x 4 cm. Patient was admitted under our services with consultation to urology. Physical exam: Patient seen and fully evaluated at the bedside this morning. She continues to report significant pain to left lower quadrant and appears uncomfortable. RN notified into Medicaid patient has ordered. Patient had 1850 mL of urinary output over the past 24 hours. Morning labs reveal improvement in leukocytosis with WBC count decreasing to 12.9 from previous 18.8. Preliminary urine culture showing no growth at this time awaiting final results. At this time patient to continue with Rocephin. Plan for likely discharge back to [facility] possibly tomorrow pending pt's pain control. Vital signs reviewed and stable. General: Nontoxic and appears stated age. Derm: Skin warm and dry, normal coloration for ethnicity. Head: Atraumatic, normocephalic and symmetric. Eyes: No lid lag, and anicteric sclera Mouth: No lip lesions, mucus membranes moist Cardiovascular: regular rate and rhythm with normal S1S2, systolic murmur, positive posterior tibial pulses bilaterally, and cap refill < 2 seconds. Lungs: Respirations even, regular, and unlabored on room air. Lungs CTA bilaterally, no rhonchi, no rales, no wheezing, and no accessory muscle usage. Abdominal: soft, Tenderness left lower quadrant/flank. No guarding, no appreciable organomegaly Ext: ROM intact. No gross muscle atrophy, no edema, no contractures Neuro: Awake, does not follow commands or answer questions, did point to left lower quadrant of abdomen when asked about pain. Psych: Awake and alert, moaning pointing to pain in left lower quadrant. Assessment and Plan of Care: Obstructing calculus of the left ureteral pelvic junction with hydronephrosis status post cystoscopy with left ureteral stent placement on 08/31/21 Leukocytosis with WBC count of 18.8 UTI -Urology took patient for cystoscopy with successful placement of left ureteral stent -Continue IV antibiotics with Rocephin pending urine culture results -Pt received gentle hydration -Bladder management with close monitoring of I's and O's -Follow up on urine cultures -Safe and supportive care with pain control. Elevated troponins, flat -Monitor vital signs closely and Continue telemetry monitoring. -Obtain an EKG -Patient asymptomatic of cardiac complaints. Abdominal aortic aneurysm 3.2 cm, incidental finding on imaging -Recommend following up outpatient with vascular surgery for long-term monitoring/management. Left lower quadrant abdominal wall ventral hernia -Recommend following up outpatient with general surgery for long-term monitoring/management. Dementia -Continue to provide safe and supportive care with assistance as needed. -Fall precautions Hypertension Monitor vital signs and continue daily medication regimen with amlodipine and lisinopril. Diabetes mellitus -Glycemic protocol with NovoLog sliding scale. CODE STATUS: Full code DVT prophylaxis: Heparin Discussed with: Patient and RN Anticipated discharge date: Possibly tomorrow morning Anticipated discharge place: Back to [facility] A total of 40 minutes was spent on the care of this complex patient more than 50% of the time was spent in counseling and care coordination. Objective - Vital Signs Vital signs: Vital Signs Temp 98.5 F 09/01/21 07:32 Pulse 85 09/01/21 07:32 Resp 18 09/01/21 07:32 BP 177/75 09/01/21 07:32 Pulse Ox 91 L 09/01/21 07:32 Intake & Output 08/31/21 09/01/21 09/01/21 18:59 06:59 18:59 Intake Total 400 540 118 Output Total 0 1050 Balance 400 -510 118 Weight 68.039 kg Intake: IV 400 Oral 540 118 Output: Urine 1050 Straight 900 Estimated Blood Loss 0 Other: Voiding Method External Catheter - Labs CBC & Chem 7: 09/01/21 07:21 09/01/21 07:21 Labs: Abnormal Lab Results - Last 24 Hours (Table) 08/31/21 08/31/21 09/01/21 Range/Units 17:28 20:24 06:16 WBC (3.8-10.6) k/uL Neutrophils # (1.3-7.7) k/uL Chloride (98-107) mmol/L Carbon Dioxide (22-30) mmol/L BUN (7-17) mg/dL Glucose (74-99) mg/dL POC Glucose (mg/dL) 101 H 122 H 160 H (75-99) mg/dL AST (14-36) U/L Total Protein (6.3-8.2) g/dL Albumin (3.5-5.0) g/dL 09/01/21 09/01/21 Range/Units 07:21 07:21 WBC 12.9 H (3.8-10.6) k/uL Neutrophils # 11.3 H (1.3-7.7) k/uL Chloride 111 H (98-107) mmol/L Carbon Dioxide 19 L (22-30) mmol/L BUN 39 H (7-17) mg/dL Glucose 165 H (74-99) mg/dL POC Glucose (mg/dL) (75-99) mg/dL AST 53 H (14-36) U/L Total Protein 5.6 L (6.3-8.2) g/dL Albumin 2.9 L (3.5-5.0) g/dL <Abdirashid Ron - Last Filed: 09/01/21 17:00> Subjective I reviewed the documentation as provided by the JODY above, who is the original author of this note. I agree with the documented assessment and plan, with the following changes: None Objective - Vital Signs Vital signs: Vital Signs Temp 98.2 F 09/01/21 12:00 Pulse 60 09/01/21 14:00 Resp 18 09/01/21 14:00 BP 138/74 09/01/21 12:00 Pulse Ox 91 L 09/01/21 12:00 Intake & Output 08/31/21 09/01/21 09/01/21 18:59 06:59 18:59 Intake Total 400 540 118 Output Total 0 1050 1800 Balance 400 510 1684 Weight 68.039 kg Intake: IV 400 Oral 540 118 Output: Urine 1050 1800 Straight 900 900 Estimated Blood Loss 0 Other: Voiding Method External Catheter External Catheter - Labs CBC & Chem 7: 09/01/21 07:21 09/01/21 07:21 Labs: Abnormal Lab Results - Last 24 Hours (Table) 08/31/21 08/31/21 09/01/21 Range/Units 17:28 20:24 06:16 WBC (3.8-10.6) k/uL Neutrophils # (1.3-7.7) k/uL Chloride (98-107) mmol/L Carbon Dioxide (22-30) mmol/L BUN (7-17) mg/dL Glucose (74-99) mg/dL POC Glucose (mg/dL) 101 H 122 H 160 H (75-99) mg/dL AST (14-36) U/L Total Protein (6.3-8.2) g/dL Albumin (3.5-5.0) g/dL 09/01/21 09/01/21 09/01/21 Range/Units 07:21 07:21 11:32 WBC 12.9 H (3.8-10.6) k/uL Neutrophils # 11.3 H (1.3-7.7) k/uL Chloride 111 H (98-107) mmol/L Carbon Dioxide 19 L (22-30) mmol/L BUN 39 H (7-17) mg/dL Glucose 165 H (74-99) mg/dL POC Glucose (mg/dL) 223 H (75-99) mg/dL AST 53 H (14-36) U/L Total Protein 5.6 L (6.3-8.2) g/dL Albumin 2.9 L (3.5-5.0) g/dL 09/01/21 Range/Units 16:34 WBC (3.8-10.6) k/uL Neutrophils # (1.3-7.7) k/uL Chloride (98-107) mmol/L Carbon Dioxide (22-30) mmol/L BUN (7-17) mg/dL Glucose (74-99) mg/dL POC Glucose (mg/dL) 165 H (75-99) mg/dL AST (14-36) U/L Total Protein (6.3-8.2) g/dL Albumin (3.5-5.0) g/dL Microbiology - Last 24 Hours (Table) 08/30/21 22:17 Urine Culture - Final Urine,Catheterized
[2021-09-01 11:34] LABS: Glucose,Whole Blood 223 mg/dL (75-99)
[2021-09-01] MEDS: LACTATED RINGERS 1,000 ML IV SCH (13:52)
[2021-09-01 16:47] LABS: Glucose,Whole Blood 165 mg/dL (75-99)
[2021-09-01 17:07] VITALS: RESP 20
[2021-09-01] MEDS: FAMOTIDINE 20 MG TAB PO SCH (20:06)
[2021-09-01 20:39] LABS: Glucose,Whole Blood 254 mg/dL (75-99)
[2021-09-02] MEDS: HEPARIN SODIUM,PORCINE/PF 5,000 UNIT/0.5 ML SYRINGE SQ SCH ×2 (00:48→09:19)
[2021-09-02] MEDS: INSULIN ASPART (NovoLOG) 100 UNIT/ML VIAL SQ SCH ×2 (06:19→13:05)
[2021-09-02 06:20] LABS: Glucose,Whole Blood 142 mg/dL (75-99)
[2021-09-02] MEDS ORDERED: PANTOPRAZOLE 40 MG TABLET PO SCH (07:30)
[2021-09-02 08:26] LABS: HCT 38.9 % (34.0-46.0); HGB 12.3 gm/dL (11.4-16.0); MCH 28.8 pg (25.0-35.0); MCHC 31.7 g/dL (31.0-37.0); Mean Platelet Volume 8.5; Platelet Count 274 k/uL (150-450); RBC 4.28 m/uL (3.80-5.40); RDW 14.4 % (11.5-15.5); WBC 14.2 k/uL (3.8-10.6)
[2021-09-02 08:44] LABS: Albumin 2.8 g/dL (3.5-5.0); Calcium 8.5 mg/dL (8.4-10.2); Magnesium 1.9 mg/dL (1.6-2.3); Potassium 4.1 mmol/L (3.5-5.1); Total Bilirubin 0.6 mg/dL (0.2-1.3); Total Protein 5.6 g/dL (6.3-8.2)
[2021-09-02] MEDS: lisinopriL 5 MG TAB PO SCH (09:19)
[2021-09-02] MEDS: amLODIPine 10 MG TAB PO SCH (09:19)
[2021-09-02] MEDS: DOCUSATE 100 MG CAP PO SCH ×2 (09:19→09:20)
--- NOTE | 2021-09-02 09:44 | P.PN ---
Progress Note - Text Progress Note Date: 09/02/21 The patient is resting comfortably. She remains afebrile with stable vital signs. She has a Lutz catheter in place, draining blood-tinged urine. Her WBC count today remains elevated at 14.2. Urine culture showed greater than 100,000 mixed organisms. I would suggest she continue to receive broad-spectrum antibiotics.
[2021-09-02 10:47] VITALS: BP 159/69; TEMP 97.8
[2021-09-02] MEDS: HYDROmorphone 1 MG/ML 1 ML SYRINGE IVP PRN (10:55)
[2021-09-02 11:36] LABS: Glucose,Whole Blood 146 mg/dL (75-99)
--- NOTE | 2021-09-02 13:11 | P.DS ---
Providers Date of admission: 08/31/21 00:31 Expected date of discharge: 09/02/21 Attending physician: Aury Crooks MD Consults: 08/31/21 00:32 Consult Physician Routine Consulting Provider: Justin Valdez Consult Reason/Comments: kidney stone Do you want consulting provider notified?: Yes Primary care physician: Tejas Ocampo MD Hospital Course: Discharge Diagnosis: Obstructing calculus of the left ureteral pelvic junction with hydronephrosis status post cystoscopy with left ureteral stent placement on 08/31/21, continue cornejo catheter care until follow-up with urology for outpatient ureteroscopy with laser lithotripsy Leukocytosis UTI, culture positive for >100,000 mixed organisms, continue with cephalexin 500 mg every 8 hours 7 days for a total of 10 days of antibiotic therapy Elevated troponins, acute coronary event ruled out Abdominal aortic aneurysm 3.2 cm, incidental finding on imaging, recommend following up outpatient with vascular surgery for long-term monitoring/management. Left lower quadrant abdominal wall ventral hernia, recommend following up outpatient with general surgery for long-term monitoring/management. Dementia Hypertension Diabetes mellitus Hospital Course: Patient is a very pleasant 81-year-old female with a past medical history of Alzheimer's dementia, diabetes and hypertension. She presented to the emergency department from [facility] with a chief complaint of abdominal pain. Patient was seen and fully evaluated in the emergency department where she was found to have an obstructing calculus of the left ureteral pelvic junction with hydronephrosis, leukocytosis with WBC count of 18.8, UTI, and elevated troponins of 0.082, 0.076, and 0.067. She underwent CT abdomen and pelvis with contrast revealed an obstructing calculus of left ureteral pelvic junction with hydronephrosis, a large calculus lower pole of left kidney, moderate atherosclerotic vascular disease with cortical hypodensity in left lower pole of left kidney possibly representing an old infarct, a mild 3.2 cm abdominal aortic aneurysm, and a left lower quadrant abdominal wall ventral hernia containing omental fat measuring 8 x 4 cm. Patient was admitted under our services with consultation to urology. She underwent cystoscopy with successful left ureteral stent placement on 08/31/[address] Valdez. She received 3 days of IV antibiotics with Rocephin and and is being discharged home on cephalexin 500 mg every 8 hours for an additional 7 days to total of treatment course of 10 days of antibiotic therapy secondary to invasive procedures and urine culture positive for greater than 100,000 mixed organisms. Patient is medically stable for discharge back to [facility] facility at this time, arrangements being made by urology for outpatient ureteroscopy with laser lithotripsy to be completed after completion of antibiotic course. Pending procedure, [facility] facility to continue with Cornejo catheter care. Physical exam: Patient seen and fully evaluated at the bedside this morning. She appears to be more comfortable this morning and has not had any further pain medications since yesterday afternoon. .. She has had a total of 3250 mL of urinary output over the past 24 hours. She continues to have mild leukocytosis with WBC count of 14.2. Urine culture positive for >100,000 mixed organisms, we will plan to continue with oral antibiotic cephalexin upon discharge. Arrangements have been made for patient to be discharged back to [facility] and to follow up outpatient as recommended with PCP, urology, vascular surgery, and general surgery. Discussed discharge plan and recommendations for follow up with patient's daughter, Marysol. Vital signs reviewed and stable. General: Nontoxic and appears stated age. Derm: Skin warm and dry, normal coloration for ethnicity. Head: Atraumatic, normocephalic and symmetric. Eyes: No lid lag, and anicteric sclera Mouth: No lip lesions, mucus membranes moist Cardiovascular: regular rate and rhythm with normal S1S2, systolic murmur, positive posterior tibial pulses bilaterally, and cap refill < 2 seconds. Lungs: Respirations even, regular, and unlabored on room air. Lungs CTA bilaterally, no rhonchi, no rales, no wheezing, and no accessory muscle usage. Abdominal: soft, Slight Tenderness in left lower quadrant. No guarding, no appreciable organomegaly Ext: ROM intact. No gross muscle atrophy, no edema, no contractures Neuro: Awake, does not follow commands or answer questions, did point to left lower quadrant of abdomen when asked about pain. Psych: Awake and alert, moaning pointing to pain in left lower quadrant. A total of 45 minutes of time were spent preparing this complex discharge summary. Patient Condition at Discharge: Stable Plan - Discharge Summary Discharge Rx Participant: No New Discharge Prescriptions: New Cephalexin [Keflex] 500 mg PO Q8HR 7 Days #21 cap Continue amLODIPine [Norvasc] 10 mg PO DAILY@0800 traMADol HCL 50 mg PO Q6H PRN PRN Reason: Pain Acetaminophen Tab [Tylenol] 650 mg PO Q6H PRN MDD 3 GM PRN Reason: Pain Or Fever > 100.5 Nystatin 100,000Unit/gm Cream [Mycostatin Cream] 1 applic TOPICAL DAILY@0800 Lidocaine [Lidocaine 5% Rectal Cream] 1 applic RECTAL Q8H PRN PRN Reason: Hemorrhoids Docusate [Colace] 100 mg PO BID@799,1999 Famotidine [Pepcid] 20 mg PO HS@1999 polyethylene glycoL 3350 [Miralax] 17 gm PO DAILY@0800 lisinopriL [Zestril] 5 mg PO DAILY@0800 Discontinued Cephalexin [Keflex] 500 mg PO BID@799,1999 Discharge Medication List Acetaminophen Tab [Tylenol] 650 mg PO Q6H PRN MDD 3 GM 08/30/21 [History] Docusate [Colace] 100 mg PO BID@08,199908/30/21 [History] Famotidine [Pepcid] 20 mg PO HS@199908/30/21 [History] Lidocaine [Lidocaine 5% Rectal Cream] 1 applic RECTAL Q8H PRN 08/30/21 [History] Nystatin 100,000Unit/gm Cream [Mycostatin Cream] 1 applic TOPICAL DAILY@0808/30/21 [History] amLODIPine [Norvasc] 10 mg PO DAILY@0800 08/30/21 [History] lisinopriL [Zestril] 5 mg PO DAILY@0800 08/30/21 [History] polyethylene glycoL 3350 [Miralax] 17 gm PO DAILY@0800 08/30/21 [History] traMADol HCL 50 mg PO Q6H PRN 08/30/21 [History] Cephalexin [Keflex] 500 mg PO Q8HR 7 Days #21 cap 09/02/21 [Rx] Follow up Appointment(s)/Referral(s): Justin Valdez MD [STAFF PHYSICIAN] - 1 Week Tejas Ocampo MD [Primary Care Provider] - 1-2 days Activity/Diet/Wound Care/Special Instructions: Activity: As tolerated. Take breaks as needed. Diet: Heart healthy and carb consistent diet. Avoid salts, or foods with hidden salts such as canned or boxed foods and frozen dinners. Extra salt makes your heart work harder and traps the fluid in your body for longer. Special Instructions: Take all of your medications as directed and remember to keep all of your doctor's appointments and follow-up as needed. It is important to follow-up with Dr. Valdez as arranged to undergo outpatient ureteroscopy with laser lithotripsy. Thank you for allowing us to participate in your care, it was truly a pleasure having you for our patient!!! Discharge Disposition: TRANSFER TO SNF/ECF
[2021-09-02 15:26] VITALS: PULSE 54
== END 2021-09-02 15:41 | DRG 661 ==
LOC: SUPCPDRO 21:43 → EC 21:43 → 3SCARD 08-31 00:31
PROVIDERS: ADMIT Internal Medicine; ATTEND Internal Medicine
PROC: 0T778DZ Dilation of Left Ureter with Intraluminal Device, Via Natural or Artificial Opening Endoscopic (ICD-10-PCS; principal; 2021-08-31 13:30)
DX: N13.6 Pyonephrosis (principal); Z20.822 Contact with and (suspected) exposure to COVID-19; E11.9 Type 2 diabetes mellitus without complications; G30.9 Alzheimer's disease, unspecified; F02.80 Dementia in other diseases classified elsewhere, unspecified severity, without behavioral disturbance, psychotic disturbance, mood disturbance, and anxiety; F17.200 Nicotine dependence, unspecified, uncomplicated; I10 Essential (primary) hypertension; R77.8 Other specified abnormalities of plasma proteins; I71.4 Abdominal aortic aneurysm, without rupture; K43.9 Ventral hernia without obstruction or gangrene; Z79.899 Other long term (current) drug therapy
CPT/HCPCS: 36415; 51798; 74177; 80053; 81001; 82150; 83605; 83690; 83735; 84484; 85025; 85027; 87086; 87635; 96374; 99285

== ENCOUNTER 2021-09-16 05:46 | Day surgery (SDC) | payer MEDICARE, OTHER ==
--- NOTE | 2021-09-14 06:52 | P.GSHP ---
History of Present Illness H&P Date: 09/14/21 Chief Complaint: Abdominal pain he patient is an 81-year-old white female with dementia. She presents with abdominal pain, associated with nausea and vomiting. She is unable to provide history. CT Scan showed left hydronephrosis resulting from a 7 x 9 mm left proximal urete ral calculus, as well as a 13 mm left lower pole renal calculus. She underwent cystoscopy with left ureteral stent insertion. She now comes for cystoscopy, left ureteral stent removal, left ureteroscopy with laser lithotripsy and possible stone basketing. Given the stone burden, she may require multiple procedures. However, I favor this over a percutaneous nephrolithotomy given its less invasive nature. This is all been reviewed in detail with the patient's daughter, who was made aware of potential risks which include anesthesia, bleeding, infection, and ureteral injury. - Review of Systems ROS unobtainable: Reports: due to mental status Past Medical History Past Medical History: Cancer, Dementia, Diabetes Mellitus, Hypertension Additional Past Medical History / Comment(s): Alzheimers, Dysphagia, general muscle weakness, constipation, hemorrhoids, UTI History of Any Multi-Drug Resistant Organisms: None Reported Past Surgical History: Cholecystectomy, Hysterectomy Past Anesthesia/Blood Transfusion Reactions: Unable to Obtain Past Psychological History: No Psychological Hx Reported Smoking Status: Former smoker Past Alcohol Use History: None Reported Past Drug Use History: None Reported Medications and Allergies Home Medications Medication Instructions Recorded Confirmed Type Acetaminophen Tab [Tylenol] 650 mg PO Q6H PRN MDD 3 GM 08/30/21 08/30/21 History Docusate [Colace] 100 mg PO BID@08,199908/30/21 08/30/21 History Famotidine [Pepcid] 20 mg PO HS@199908/30/21 08/30/21 History Lidocaine [Lidocaine 5% Rectal 1 applic RECTAL Q8H PRN 08/30/21 08/30/21 History Cream] Nystatin 100,000Unit/gm Cream 1 applic TOPICAL DAILY@79908/30/21 08/30/21 History [Mycostatin Cream] amLODIPine [Norvasc] 10 mg PO DAILY@0808/30/21 08/30/21 History lisinopriL [Zestril] 5 mg PO DAILY@79908/30/21 08/30/21 History polyethylene glycoL 3350 [Miralax] 17 gm PO DAILY@0800 08/30/21 08/30/21 History traMADol HCL 50 mg PO Q6H PRN 08/30/21 08/30/21 History Cephalexin [Keflex] 500 mg PO Q8HR 7 Days #21 cap 09/02/21 Rx Allergies Allergy/AdvReac Type Severity Reaction Status Date / Time No Known Allergies Allergy Verified 08/30/21 22:21 Surgical - Exam - General well developed, well nourished, no distress - Respiratory normal respiratory effort - Abdomen Abdomen: soft, non tender, no guarding, no rigid, no rebound - Genitourinary normal external genitalia, normal perineum Results - Imaging CT scan - abdomen: report reviewed, image reviewed Assessment and Plan (1) Left ureteral calculus Status: Acute Code(s): N20.1 - CALCULUS OF URETER SNOMED Code(s): 62365595 (2) Calculus of kidney Status: Acute Code(s): N20.0 - CALCULUS OF KIDNEY SNOMED Code(s): 50052602 Plan: Cystoscopy, left ureteral stent removal, left ureteroscopy with Holmium laser lithotripsy and possible stone basketing. Given the stone burden, she may require multiple procedures. Potential risks include anesthesia, bleeding, infection, and ureteral injury.
[2021-09-14 11:22] VITALS: BMI 27.6
[~2021-09-16 05:46] MED LIST: GENTAMICIN 80 MG in SODIUM CHLORIDE 0.9% 100 ML IVPB PRN
[2021-09-16] MEDS ORDERED: MIDAZOLAM 2 MG/2 ML VIAL IV PRN (05:54)
[2021-09-16] MEDS ORDERED: LACTATED RINGERS 1,000 ML IV SCH (05:54)
[2021-09-16] MEDS ORDERED: ONDANSETRON 4 MG/2 ML VIAL IVP ONE (05:54)
[2021-09-16] MEDS ORDERED: DEXAMETHASONE SOD PHOSPHATE 4 MG/ML 1 ML VIAL IV ONE (05:54)
--- NOTE | 2021-09-16 06:38 | XR ---
EXAMINATION TYPE: XR KUB DATE OF EXAM: 09/16/2021 6:31 AM CLINICAL HISTORY: Left-sided calculus TECHNIQUE: Single supine KUB image of the abdomen is obtained. COMPARISON: CT abdomen and pelvis August 30, 2021. FINDINGS: There is double-J left ureter stent now present. Redemonstration of multiple nonobstructing bilateral renal calculi more numerous on the left. Poor visualization of calculus along the ureter. Some surgical clips in the pelvis with occasional scattered pelvic phleboliths. Metallic artifact from bilateral hip surgery is partially imaged. Overall nonobstructive bowel gas pa ttern. Underlying scoliosis with multilevel spurring and disc space narrowing. IMPRESSION: As above.
[2021-09-16] MEDS ORDERED: LACTATED RINGERS 1,000 ML IV ONE ×3 (07:00)
[2021-09-16] MEDS ORDERED: HYDROmorphone 0.5 MG/0.5 ML SYRINGE IVP PRN (07:00)
[2021-09-16 07:19] LABS: Glucose,Whole Blood 135 mg/dL (75-99)
[2021-09-16] MEDS ORDERED: GLYCOPYRROLATE 0.2 MG/ML 2 ML VIAL ONE (07:30)
[2021-09-16] MEDS ORDERED: PROPOFOL 10 MG/ML 20 ML VIAL IV ONE (07:30)
[2021-09-16] MEDS ORDERED: LIDOCAINE 1% INJ 10MG/ML (20 ML MDV) ONE (07:30)
[2021-09-16] MEDS ORDERED: PHENYLEPHRINE-0.9% NACL SYG 1,000 MCG/10 ML SYRINGE ONE (07:30)
[2021-09-16] MEDS ORDERED: SUCCINYLCHOLINE CHLORIDE 100 MG/5 ML SYR IV ONE (07:30)
[2021-09-16] MEDS ORDERED: fentaNYL (PF) 50 MCG/ML 2 ML AMP ONE (07:30)
[2021-09-16 09:44] VITALS: TEMP 97.5
--- NOTE | 2021-09-16 09:48 | P.OP ---
Date of Procedure: 09/16/21 Preoperative Diagnosis: Left ureteral calculus, left renal calculus Postoperative Diagnosis: Same Procedure(s) Performed: Cystoscopy, left ureteroscopy with Holmium laser lithotripsy, left ureteral stent change Anesthesia: HENNAA Surgeon: Justin Valdez Estimated Blood Loss (ml): 0 IV fluids (ml): 600 Pathology: none sent Condition: stable Disposition: PACU Indications for Procedure: The patient is an 81-year-old white female with dementia. She presented with abdominal pain, associated with nausea and vomiting. She was unable to provide history. CT Scan showed left hydronephrosis resulting from a 7 x 9 mm left proximal ureteral calculus, as well as a 13 mm left lower pole renal calculus. She underwent cystoscopy with left ureteral stent insertion. She now comes for cystoscopy, left ureteral stent removal, left ureteroscopy with laser lithotri psy and possible stone basketing. Given the stone burden, she may require multiple procedures. However, I favor this over a percutaneous nephrolithotomy given its less invasive nature. This is all been reviewed in detail with the patient's daughter, who was made aware of potential risks which include anesthesia, bleeding, infection, and ureteral injury. Operative Findings: Excellent fragmentation of 2 left lower pole renal calculi. Description of Procedure: The patient was taken to the operating room and placed in the dorsolithotomy position, with legs supported in Nasir stirrups. The external genitalia was prepped and draped sterilely. The 30 lens was used to introduce the 21-Bel[place] Wells cystoscopic sheath through the urethra and into the bladder under direct vision. The bladder was examined in its entirety. The right ureteral orifice appeared normal. Grasping forceps were used to grasp the distal end of the left ureteral stent, which was removed along with the cystoscope. A 0.035 inch Glidewire was passed through the stent and up to the left renal pelvis. The Wells ActivIdentity flexible ureteroscope was then passed over the wire, up to the mid ureter. The ureteroscope was then slowly advanced under direct vision, up to the left renal pelvis. A calculus was identified within a lower pole calyx. The 272 micron Holmium laser probe was passed through the ureteroscope, and lithotripsy was performed. The calculus was soft, perhaps of struvite composition. It was fragmented completely. With some difficulty, the larger calculus was identified and fragmented. This also fragmented readily, but appeared to have been composed of calcium oxalate dihydrate or apatite. The angle to treat this second calculus was cumbersome, but attempts to basket the calculus and relocated into an upper pole calyx were unsuccessful. It appeared that fragmentation was complete, but visualization was suboptimal due to abundant debris. At this point, the Glidewire was passed through the ureteroscope, which was removed. The Glidewire was backloaded into the cystoscope, which was passed into the bladder. A 24 cm, 6-Belgian double-J ureteral stent was placed over the wire. Proper stent positioning was verified fluoroscopically and endoscopically. The bladder was emptied and the cystoscope removed. The patient tolerated the procedure well and was taken to the recovery room in stable condition. [facility] Report: Procedure Acuity: Elective Stone Size and Location: See indications Ureteral Dilation: No Ureteral Access Sheath Used: No Stone Sent for Analysis: No All Stones/Fragments Were Removed with a Basket: No Complications: No Preoperative Antibiotics Given: Yes Stent Placed: Yes If Stent Placed, Was String Left Attached: No If Stent Placed, When is it to be Removed: 2-3 weeks Discharge Medications: None Plan: Repeat ureteroscopy in 3 weeks to ensure there are no large residual calculus fragments.
[2021-09-16] MEDS ORDERED: KETOROLAC 15 MG/ML 1 ML VIAL IVP ONE ×2 (09:50→09:53)
--- NOTE | 2021-09-16 10:26 | FL ---
EXAMINATION TYPE: FL guidance operating room DATE OF EXAM: 09/16/2021 FLUOROSCOPY Fluoroscopy time of 12 seconds was used during urologic intervention for left-sided kidney stone. 8 image/s document/s the procedure.
[2021-09-16 12:31] VITALS: BP 125/75; PULSE 65; RESP 18
== END 2021-09-16 15:05 ==
LOC: OR 05:46
PROVIDERS: ATTEND Urology
DX: N20.2 Calculus of kidney with calculus of ureter (principal); E11.9 Type 2 diabetes mellitus without complications; I10 Essential (primary) hypertension; F03.90 Unspecified dementia, unspecified severity, without behavioral disturbance, psychotic disturbance, mood disturbance, and anxiety; Z87.891 Personal history of nicotine dependence
CPT/HCPCS: 52356; 74018; C2625; C1769; J1100; J0690; J2405; J2001; J3010; J1580; J1885; J2370; J0330; J2704; J1170

== ENCOUNTER 2021-10-07 08:12 | Day surgery (SDC) | payer MEDICARE, OTHER ==
--- NOTE | 2021-10-04 07:51 | P.GSHP ---
History of Present Illness H&P Date: 10/04/21 Chief Complaint: Abdominal pain The patient is an 81-year-old white female with dementia. She presented with abdominal pain, associated with nausea and vomiting. CT Scan showed left hydronephrosis resulting from a 7 x 9 mm left proximal ureteral calculus, as well as a 13 mm left lower pole renal calculus. She initially underwent cystoscopy with left ureteral stent insertion, and subsequently left ureteroscopy with laser lithotripsy. She now comes for cystoscopy, left ureteral stent removal, and removal of any residual ureteral or renal calculi. This is all been reviewed in detail with the patient's daughter, who was made aware of potential risks which include anesthesia, bleeding, infection, and ureteral injury. - Review of Systems ROS unobtainable: Reports: due to mental status Past Medical History Past Medical History: Cancer, Dementia, Diabetes Mellitus, Hypertension Additional Past Medical History / Comment(s): Alzheimers, Dysphagia, general muscle weakness, constipation, hemorrhoids, diet control diabetic, kidney stones. limited hx at [facility] History of Any Multi-Drug Resistant Organisms: None Reported Past Surgical History: Cholecystectomy, Hysterectomy Additional Past Surgical History / Comment(s): limited hx at [facility] Past Anesthesia/Blood Transfusion Reactions: Unable to Obtain Additional Past Anesthesia/Blood Transfusion Reaction / Comment(s): [facility] has no information for pt or family Smoking Status: Former smoker - Past Family History Mother Family Medical History: Unable to Obtain Medications and Allergies Home Medications Medication Instructions Recorded Confirmed Type Acetaminophen Tab [Tylenol] 650 mg PO Q6H PRN MDD 3 GM 08/30/21 09/14/21 History Docusate [Colace] 100 mg PO BID@08,199908/30/21 09/16/21 History Famotidine [Pepcid] 20 mg PO HS@199908/30/21 09/16/21 History Lidocaine [Lidocaine 5% Rectal 1 applic RECTAL Q8H PRN 08/30/21 09/14/21 History Cream] Nystatin 100,000Unit/gm Cream 1 applic TOPICAL DAILY@79908/30/21 09/16/21 History [Mycostatin Cream] amLODIPine [Norvasc] 10 mg PO DAILY@0808/30/21 09/16/21 History lisinopriL [Zestril] 5 mg PO DAILY@79908/30/21 09/16/21 History polyethylene glycoL 3350 [Miralax] 17 gm PO DAILY@0800 08/30/21 09/14/21 History traMADol HCL 50 mg PO Q6H PRN 08/30/21 09/14/21 History Allergies Allergy/AdvReac Type Severity Reaction Status Date / Time No Known Allergies Allergy Verified 09/16/21 07:31 Surgical - Exam - General well developed, well nourished, no distress - Respiratory normal respiratory effort - Abdomen Abdomen: soft, non tender, no guarding, no rigid, no rebound - Psychiatric oriented to time, oriented to person, oriented to place, speech is normal, memory intact Results - Imaging CT scan - abdomen: report reviewed, image reviewed Assessment and Plan (1) Calculus of kidney Status: Acute Code(s): N20.0 - CALCULUS OF KIDNEY SNOMED Code(s): 07846490 (2) Left ureteral calculus Status: Acute Code(s): N20.1 - CALCULUS OF URETER SNOMED Code(s): 03117999 Plan: Cystoscopy, left ureteral stent removal, left ureteroscopy with Holmium laser lithotripsy and possible stone basketing. Potential risks include anesthesia, bleeding, infection, and ureteral injury.
[~2021-10-07 08:12] MED LIST changes: +DEXAMETHASONE SOD PHOSPHATE 4 MG/ML 1 ML VIAL IV ONE; -GENTAMICIN 80 MG in SODIUM CHLORIDE 0.9% 100 ML IVPB PRN; +HYDROmorphone 0.5 MG/0.5 ML SYRINGE IVP PRN; +LIDOCAINE 1% (10MG/ML) FOR IV START INTRADERMA PRN; +MIDAZOLAM 2 MG/2 ML VIAL IV PRN; +ONDANSETRON 4 MG/2 ML VIAL IVP ONE
[2021-10-07] MEDS: LACTATED RINGERS 1,000 ML IV SCH ×2 (09:06→09:12)
[2021-10-07] MEDS ORDERED: MIDAZOLAM 2 MG/2 ML VIAL ONE (09:08)
[2021-10-07] MEDS ORDERED: SUCCINYLCHOLINE CHLORIDE 100 MG/5 ML SYR IV ONE (09:08)
[2021-10-07] MEDS ORDERED: LIDOCAINE 1% INJ 10MG/ML (20 ML MDV) ONE (09:08)
[2021-10-07] MEDS ORDERED: fentaNYL (PF) 50 MCG/ML 2 ML AMP ONE (09:08)
[2021-10-07] MEDS ORDERED: ONDANSETRON 4 MG/2 ML VIAL ONE (09:08)
[2021-10-07] MEDS ORDERED: PROPOFOL 10 MG/ML 20 ML VIAL IV ONE (09:08)
[2021-10-07 09:10] LABS: Glucose,Whole Blood 138 mg/dL (75-99)
[2021-10-07] MEDS: GENTAMICIN 80 MG in SODIUM CHLORIDE 0.9% 100 ML IVPB PRN ×2 (09:12→09:35)
--- NOTE | 2021-10-07 10:15 | XR ---
EXAMINATION TYPE: XR KUB DATE OF EXAM: 10/07/2021 Comparison: 09/16/2021 Clinical History: 81-year-old female PRE-OP:LOCATION OF RENAL CALCULI Findings: Degenerative levoconvex scoliosis. Bilateral total hip arch plasties. A few surgical clips within the pelvis. Multiple bilateral renal calcifications are identified. A left ureteral stent is in place. Rounded ca lcifications in the pelvis likely phleboliths. Moderate stool within the right side of the abdomen. Nonobstructive bowel gas pattern. Impression: Multiple bilateral renal calcifications, most of which appear to represent renal vascular calcificati ons when correlating with 08/30/2021 CT. Left ureteral stent is in place.
[2021-10-07 10:23] VITALS: RESP 16; TEMP 97.8
--- NOTE | 2021-10-07 10:32 | P.OP ---
Date of Procedure: 10/07/21 Preoperative Diagnosis: Left renal calculi Postoperative Diagnosis: Same Procedure(s) Performed: Cystoscopy, left ureteral stent removal, left ureteroscopy with Holmium laser lithotripsy Anesthesia: HENNAA Surgeon: Justin Valdez Estimated Blood Loss (ml): 0 IV fluids (ml): 400 Pathology: none sent Condition: stable Disposition: PACU Indications for Procedure: The patient is an 81-year-old white female with dementia. She presented with abdominal pain, associated with nausea and vomiting. CT Scan showed left hydronephrosis resulting from a 7 x 9 mm left proximal ureteral calculus, as well as a 13 mm left lower pole renal calculus. She initially underwent cystoscopy with left ureteral stent insertion, and subsequently left ureteroscopy with laser lithotripsy. She now comes for cystoscopy, left ureteral stent removal, and removal of any residual ureteral or renal calculi. Operative Findings: Several small residual left renal calculi, all fragmented completely. Description of Procedure: The patient was taken to the operating room and placed in the dorsolithotomy position, with legs supported in Nasir stirrups. The external genitalia was prepped and draped sterilely. The 30 lens was used to introduce the 21-[place] Wells cystoscopic sheath through the urethra and into the bladder under direct vision. The bladder was examined in its entirety. The distal end of the left ureteral stent was grasped with grasping forceps and removed along with the cystoscope. The Wells Cobra flexible ureteroscope was advanced in the bladder, and the left ureteral orifice was cannulated. The ureteroscope was slowly advanced under direct vision, up to the left renal pelvis. Each calyx was examined. Several small calculus fragments were identified within mid pole and lower pole calyces, measuring up to 2 mm in size. The 272 micron Holmium laser probe was passed through the ureteroscope, and lithotripsy was performed. This was continued until there were no calculus fragments exceeding the size of the laser fiber tip. The ureteroscope was then slowly withdrawn under direct vision. There was no evidence of ureteral trauma. The patient tolerated the procedure well and was taken to the recovery room in stable condition. [facility] Report: Procedure Acuity: Elective Stone Size and Location: 2 mm, left lower pole Ureteral Dilation: No Ureteral Access Sheath Used: No Stone Sent for Analysis: No All Stones/Fragments Were Removed with a Basket: No Complications: No Preoperative Antibiotics Given: Yes Stent Placed: No Discharge Medications: None
[2021-10-07 11:09] VITALS: BP 145/73; PULSE 68
--- NOTE | 2021-10-07 12:02 | FL ---
EXAMINATION TYPE: FL guidance operating room DATE OF EXAM: 10/07/2021 HISTORY: Fluoroscopy time 1 seconds of fluoroscopy provided. IMPRESSION: 1. Fluoroscopy time.
== END 2021-10-07 11:52 ==
LOC: OR 08:12
PROVIDERS: ATTEND Urology
DX: N13.2 Hydronephrosis with renal and ureteral calculous obstruction (principal); E11.9 Type 2 diabetes mellitus without complications; I10 Essential (primary) hypertension; G30.9 Alzheimer's disease, unspecified; F02.80 Dementia in other diseases classified elsewhere, unspecified severity, without behavioral disturbance, psychotic disturbance, mood disturbance, and anxiety; M62.81 Muscle weakness (generalized); K64.9 Unspecified hemorrhoids; Z87.442 Personal history of urinary calculi; Z90.49 Acquired absence of other specified parts of digestive tract; Z90.710 Acquired absence of both cervix and uterus; Z87.891 Personal history of nicotine dependence; Z79.899 Other long term (current) drug therapy
CPT/HCPCS: 74018; 52353; C1769; J2250; J0690; J2405; J2001; J3010; J1580; J0330; J2704

== ENCOUNTER 2022-12-14 05:42 | Day surgery (SDC) | payer MEDICARE, OTHER ==
[2022-12-09 15:32] VITALS: BMI 24.7
[~2022-12-14 05:42] MED LIST changes: +ACETAMINOPHEN TAB 500 MG TAB PO PRN; +HEPARIN SODIUM,PORCINE/PF 5,000 UNIT/0.5 ML SYRINGE SQ PRN; -HYDROmorphone 0.5 MG/0.5 ML SYRINGE IVP PRN; +LACTATED RINGERS 1,000 ML IV SCH; -MIDAZOLAM 2 MG/2 ML VIAL IV PRN; -ONDANSETRON 4 MG/2 ML VIAL IVP ONE
[2022-12-14 07:00] LABS: Glucose,Whole Blood 163 mg/dL (70-110)
[2022-12-14] MEDS ORDERED: FAMOTIDINE 20 MG/2 ML VIAL IV PRN (07:00)
[2022-12-14] MEDS: ONDANSETRON 4 MG/2 ML VIAL IVP ONE ×2 (07:03→09:34)
[2022-12-14 07:33] LABS: Basophils % (A) 1 %; Eosinophils # (A) 0.3 k/uL (0-0.7); Eosinophils % (A) 3 %; HCT 38.8 % (34.0-46.0); HGB 13.3 gm/dL (11.4-16.0); Lymphocytes # (A) 2.2 k/uL (1.0-4.8); Lymphocytes % (A) 25 %; MCH 29.1 pg (25.0-35.0); MCHC 34.2 g/dL (31.0-37.0); MCV 85.1 fL (80.0-100.0); Monocytes # (A) 0.5 k/uL (0-1.0); Monocytes % (A) 6 %; Neutrophils # (A) 5.5 k/uL (1.3-7.7); Neutrophils % (A) 64 %; Platelet Count 292 k/uL (150-450); RBC 4.56 m/uL (3.80-5.40); RDW 13.9 % (11.5-15.5); WBC 8.7 k/uL (3.8-10.6)
[2022-12-14] MEDS ORDERED: ROCURONIUM 10 MG/ML (5 ML VIAL) IV ONE (07:37)
[2022-12-14] MEDS ORDERED: PROPOFOL 10 MG/ML 20 ML VIAL IV ONE (07:37)
[2022-12-14] MEDS ORDERED: WATER FOR INJECTION, STERILE 10 ML VIAL IV ONE (07:37)
[2022-12-14] MEDS ORDERED: SUCCINYLCHOLINE CHLORIDE 200 MG/10 ML VIAL IV ONE (07:37)
[2022-12-14] MEDS ORDERED: ePHEDrine 50 MG/ML 1 ML VIAL ONE (07:37)
[2022-12-14] MEDS ORDERED: LIDOCAINE 2% INJ 20 MG/ML (2 ML VIAL) ONE (07:37)
[2022-12-14] MEDS ORDERED: fentaNYL (PF) 50 MCG/ML 2 ML AMP ONE (07:37)
[2022-12-14] MEDS ORDERED: GLYCOPYRROLATE 0.2 MG/ML 2 ML VIAL ONE (07:37)
[2022-12-14] MEDS ORDERED: NEOSTIGMINE 1 MG/ML 10 ML VIAL ONE (07:37)
[2022-12-14] MEDS ORDERED: BUPIVACAIN-EPI 0.25%-1:200,000 30 ML VIAL SQ ONE (08:19)
[2022-12-14] MEDS ORDERED: LACTATED RINGERS 1,000 ML IV ONE (08:52)
[2022-12-14 09:02] VITALS: TEMP 97.7
--- NOTE | 2022-12-14 09:08 | P.OP ---
Date of Procedure: 12/14/22 Preoperative Diagnosis: Incarcerated incisional hernia Postoperative Diagnosis: Incarcerated incisional hernia Procedure(s) Performed: Laparoscopic robotic system repair of incarcerated incisional hernia Anesthesia: ISABELA Surgeon: Anselmo Hartman Estimated Blood Loss (ml): 5 Pathology: none sent Condition: stable Disposition: PACU Description of Procedure: The patient was placed on the operating table in the supine position. He received general anesthesia. His abdomen was prepped and draped usual fashion. Using a 5 mm optical trocar under direct visualization the peritoneal cavity was entered in the left upper quadrant. The abdomen was then insufflated. The laparoscope was placed back into the perineal cavity. Next a 8 mm robotic trocar was placed in the left lower quadrant and a 12 mm robotic trocar was placed in the left lateral position. The original 5 mm trocar was exchanged for a 8 mm robotic trocar. A four-quadrant transversus abdominis block was performed 1% local Xylocaine The patient's placed in the left side up position. And the patient was docked to the robot. The incisional hernia was visualized. Using hook cautery the peritoneum over the incisional hernia was excised. The fascial opening was repaired using 0V LOC suture. Next a piece of 11 cm round ventral light ST mesh was placed into the. Cavity and secured with 2 OV lock suture. The patient was undocked the robot. The needles were retrieved. The fascia of the 12 mm trocar site was closed with 0 Ethibond suture. Skin was closed interrupted 3-0 Monocryl suture. Dermabond dressings was applied. Patient tolerated procedure well and was sent to recovery room stable condition.
[2022-12-14] MEDS: HYDROmorphone 0.5 MG/0.5 ML SYRINGE IVP PRN ×2 (09:20→09:39)
[2022-12-14 11:59] VITALS: BP 139/68; PULSE 57; RESP 15
== END 2022-12-14 12:18 ==
LOC: OR 05:42
PROVIDERS: ATTEND Surgery
DX: K43.0 Incisional hernia with obstruction, without gangrene (principal); I10 Essential (primary) hypertension; E78.5 Hyperlipidemia, unspecified; E11.9 Type 2 diabetes mellitus without complications; K21.9 Gastro-esophageal reflux disease without esophagitis; Z79.82 Long term (current) use of aspirin; Z79.899 Other long term (current) drug therapy; Z98.890 Other specified postprocedural states; Z87.891 Personal history of nicotine dependence
CPT/HCPCS: 85025; 49592; C1781; J0330; J1100; J2710; J0690; J2405; J3010; J2704; J1170; J2001